=== PATIENT | female | born 1990 | race Caucasian/White ===

== ENCOUNTER 2023-10-19 21:16 | Emergency (ER) | payer BC, SELFPAY ==
[2023-10-19 21:17] VITALS: BP 117/87
--- NOTE | 2023-10-19 22:27 | ED.GENMED ---
History of Present Illness
General
Chief Complaint: Skin Surface Trauma
Source: patient
Exam Limitations: none
Time Seen by Provider: 10/19/23 22:07
Nursing documentation reviewed up to this point in time: agreed with
History of Present Illness
History of Present Illness:
Patient is a 33-year-old female with no significant past medical history presenting for evaluation of dog bite. Patient states that she was playing with the dog when her left finger got caught in his teeth while she was throwing a ball. Patient
was unable to get this bleeding to stop at home and came to the emergency department for further evaluation. Patient is having mild numbness in her left fourth finger but otherwise no limitations in range of motion.
The dog is fully vaccinated.
Patient is unsure when her last tetanus shot was.
Past History
Past History
ED Past Medical History: Psychiatric (Patient takes Zoloft)
ED Past Surgical History: None
Social History
Tobacco: Non-smoker
Personal: Single
Living: with roommate
Review of Systems
Review of Systems
Allergies reviewed?: Yes
All Other Systems: ROS reviewed and negative except as documented in HPI and ROS
Phy Exam
Physical Exam
Physical Exam:
Vitals: Patient's vital signs are stable
General: Patient is well appearing, no acute distress
Skin: Approximately 2.5 cm V-shaped laceration of left fourth digit of palmar aspect between DIP and PIP joint. No evidence of tendon involvement. Patient has full range of motion in MCP, PIP, DIP joint and left fourth digit. Mild loss of
sensation at tip of left digit.
Head: Normocephalic, atraumatic
Eyes: Sclera nonicteric. EOMs intact. No nystagmus.
Throat: Protecting airway
Neck: Normal ROM, no cervical spine tenderness, no meningismus
Cardiac: Regular rate and rhythm, no murmurs.
Pulm: Normal respiratory effort, no wheezes, rales, rhonchi heard on exam.
Abdomen: No abdominal tenderness.
Extremities: No evidence of cyanosis or edema
Neuro: AAOx3. CN II-XII intact. No focal neurologic deficits.
Psychiatric: Normal affect.
Course
Orders/Labs/Results
Orders:
Orders
10/19/23 22:30
Tetanus/Diphth/Acelpertussis [Adacel] 0.5 ml IM .ONCE ONE
10/19/23 23:26
Amoxicillin 875 mg/Clav 125 mg [Augmentin 875 mg/125 mg] 1 tablet PO NOW STA
Vital Signs
Initial and Last Documented VS:
Initial Vital Signs
Temp Pulse Resp BP Pulse Ox
98.0 F 85 17 117/87 96
10/19/23 21:17 10/19/23 21:17 10/19/23 21:17 10/19/23 21:17 10/19/23 21:17
Last Documented Vital Signs
Temp Pulse Resp BP Pulse Ox
98.0 F 85 17 117/87 96
10/19/23 21:17 10/19/23 21:17 10/19/23 21:17 10/19/23 21:17 10/19/23 21:17
Procedures
Laceration Closure
Left Fourth Finger(s):
Status of Wound: clean
Size of Wound in cm: 2.5
Description of Wound Edges: ragged
Preparation: cleaned with saline and cleaned with Betadine
Anesthesia: 1% Lidocaine and Digital-Regional
Revision/Debridement: minor revision
Wound exploration: explored to base- no FB
Type of Closure: single layer closure, interrupted sutures (6) and other (steri strips)
Skin Closure Material: 5-0 nylon
Number of sutures: 6
Additional information:
Loosely closed with sutures, Steri-Strips in addition
MDM/Problems Addressed
Differential Diagnosis Includes:
Not limited to: Laceration
MDM/Problems Addressed:
33-year-old female presenting for evaluation of laceration to left fourth finger after accidental dog bite by family dog that is fully vaccinated. Patient unsure when last tetanus shot was. Vital stable. Physical exam as above. Approximately 2.5
V-shaped laceration noted to palmar aspect of left fourth digit between DIP and PIP joint. There is no tendon involvement. Patient has full strength against resistance in left fourth digit at the PIP, DIP, MCP joint. Brisk capillary refill. No
other injury sustained. Due to wound size and considering that wound is somewhat gaping�will loosely approximate skin with sutures and Steri-Strips. Did discuss risk of infection with closing animal bite wounds and utilize shared decision making
with patient who agrees with sutures. Patient aware of risk and agrees. Will update tetanus shot.
Digital block performed to left fourth finger with 1% lidocaine. Wound irrigated extensively with saline and cleaned with Betadine. 6 interrupted sutures loosely placed to approximate wound edges. Steri-Strips applied. Bleeding well-controlled
at this time. Patient tolerated procedure well. Patient was placed in finger splint and dressing applied. Stitches will need to be removed in 7 to 10 days which patient will have done at primary care provider versus urgent care. Extensive
discussion with patient and family regarding signs of infection and when to return. Patient will be placed on prophylactic antibiotics. First dose given in emergency department today. Wound care instructions discussed at length. Patient stable
for discharge with primary care follow-up.
Chronic conditions affecting care:
N/A
Acute Exacerbation and/or Progression of Chronic Illness:
N/A
*Pulse Oximetry
Patient hypoxic: no
*EKG
Interpreted by ED Provider?: NA
*Hospice Home Health Aide Interpretation
Rate: Hospice Home Health Aide- N/A
*Critical Care Note
Total Time (30-74mins, 75-104mins- exclusive of procedures): Not Applicable
ED Attending Note
-
Portions of this chart may have been created with voice recognition software.� Occasional wrong word or��sound alike� substitutions may have occurred due to the inherent limitations of voice recognition software.
Discharge Plan
Departure
Patient Disposition: Home (Routine Discharge)
Date of Disposition: 10/19/23
Time of Disposition: 23:27
Patient with high blood pressure during this ER visit?: No
Condition: Good
Covid-19: Not Applicable
Discharge Problem:
Dog bite of finger
Instructions: Wound Care (DC), Laceration Repair With Stitches (DC), Animal Bites ED
Prescriptions:
New
amoxicillin-pot clavulanate 875-125 mg tablet
1 tab PO BID 5 Days Qty: 10 0RF
No Action
sertraline 25 MG tablet
25 mg PO DAILY
Referrals:
NONE,* [Family Provider] -
Activity Restrictions/Additional Instructions:
Return to the emergency department with any fevers, chills, severe pain in left hand, numbness/tingling in left hand, or any signs of infection
As discussed�it is important to monitor for signs of infection including: Fever, chills, severe pain/swelling in left hand, red streaking away from wound, pus draining from wound
You should keep wound clean and dry. Keep current bandage on for 24 hours then start to wash gently with soap and water daily. You should keep finger in splint until you have the stitches removed.
As discussed�the stitches will need to be removed in 7 to 10 days. This can be done at primary care, urgent care, or emergency department
A prescription for antibiotic has been sent to your pharmacy. You should take this twice a day for the next 5 days. You were given your first dose while in the emergency department.
Interventions
Interventions:
*Risk Screen - Suicide Last Done: 10/19/23 21:17
*General Assessment Last Done: 10/19/23 21:17
*Neglect/Abuse Screening Last Done: 10/19/23 21:17
*Nursing Disposition Last Done: 10/19/23 23:35
Discharge Date and Time
Discharge Date/Time: 10/19/23 23:36
Print Language: PORTUGUESE
[2023-10-19] MEDS: ADACEL 0.5 ML IM (23:32)
[2023-10-19] MEDS: AUGMENTIN 875 MG/125 MG 1 TABLET PO (23:33)
== END 2023-10-19 23:36 | disposition home or self-care (01) ==
LOC: EMR 21:16
PROVIDERS: EMERGENCY PHYSICIAN Emergency Medicine
DX: S61.215A Laceration without foreign body of left ring finger without damage to nail, initial encounter (principal); R20.0 Anesthesia of skin; W54.0XXA Bitten by dog, initial encounter; Z23 Encounter for immunization; Z91.040 Latex allergy status
CPT/HCPCS: 12041; 99283; 90471; 90715